=== PATIENT | female | born 1995 | race Caucasian/White ===

== ENCOUNTER → 2017-10-26 07:42 | Outpatient (CLI) | payer OTHER, SELFPAY ==
--- NOTE | 2017-10-26 07:45 | US_ITS ---
STUDY: ABDOMINAL ULTRASOUND REASON FOR EXAM: Female, 22 years old. One-week history of left abdominal pain. TECHNIQUE: Transabdominal ultrasound was performed with real-time and static roman scale imaging. TECHNICAL QUALITY: Adequate. COMPARISON: None. FINDINGS: Liver: The liver measures 13.5 cm. There is normal echogenicity of the liver. The bile ducts are within normal limits. There is hepatic color flow. The direction of portal flow is hepatopetal. There is no demonstrated mass lesion. Portal vein measurement: Gallbladder: Normal distended gallbladder. The gallbladder wall measures 2.5 mm. There is a negative sonographic Burns's sign. There is no pericholecystic fluid. There are no gallstones. Common Bile Duct (C.B.D.): The common bile duct measures 3.2 mm. Pancreas: Normal size of the head, body and tail of the pancreas. There is normal echogenicity of the pancreas. There is no demonstrated pancreatic mass or cyst. Spleen: Normal size of the spleen. The spleen measures 8.9 cm x 4.6 cm x 5.6 cm. Right Kidney: Normal size of the right kidney. The right kidney measures 9.7 cm x 5.3 cm x 3.3 cm. Normal renal cortex. The right cortex measures 1.0 cm. There is no demonstrated renal mass or cyst. There is mild hydronephrosis of the right kidney. Left Kidney: Normal size of the left kidney. The left kidney measures 9.5 cm x 4.5 cm x 4.4 cm. Normal renal cortex. The left cortex measures 1.6 cm. There is no demonstrated renal mass or cyst. There is no left hydronephrosis. Aorta: Unremarkable. I.V.C.: The IVC is patent. There is no ascites. US/Abdomen Complete IMPRESSION: Mild degree of right hydronephrosis Electronically Signed: Adonis Walker MD at 14:06 EDT Tel [phone], Service support ,
== END ==
PROVIDERS: Family Provider Pediatrics; PCP Pediatrics; Visit Provider Nurse Practitioner Women's Health
DX: R10.9 Unspecified abdominal pain (principal)
CPT/HCPCS: 76700

== ENCOUNTER → 2019-06-12 17:13 | Outpatient (CLI) | payer OTHER, SELFPAY ==
[2019-06-12 14:25] VITALS: BMI 21.1
[2019-06-16 16:08] LABS: HPV Reflexed? NOT INDICATED
== END ==
PROVIDERS: Family Provider Student in an Organized Health Care Education/Training Program; PCP Student in an Organized Health Care Education/Training Program; Referring Provider Obstetrics & Gynecology; Visit Provider Obstetrics & Gynecology
DX: Z12.4 Encounter for screening for malignant neoplasm of cervix (principal)
CPT/HCPCS: 88175; G0145

== ENCOUNTER → 2020-11-18 | Outpatient (CLI) | payer OTHER, SELFPAY ==
[2020-11-18 13:13] VITALS: BMI 23.0
== END | disposition home or self-care (01) ==
LOC: LABSPEC 16:51
PROVIDERS: PCP Student in an Organized Health Care Education/Training Program; Visit Provider Obstetrics & Gynecology
DX: R35.0 Frequency of micturition (principal)
CPT/HCPCS: 87086; 87088

== ENCOUNTER → 2022-02-27 | Outpatient (CLI) | payer BC, SELFPAY ==
[2022-03-04 12:26] LABS: HPV Reflexed? NOT INDICATED
== END | disposition home or self-care (01) ==
LOC: LABSPEC 17:03
PROVIDERS: PCP Student in an Organized Health Care Education/Training Program; Referring Provider Obstetrics & Gynecology; Visit Provider Obstetrics & Gynecology
DX: Z12.4 Encounter for screening for malignant neoplasm of cervix (principal)
CPT/HCPCS: 88175; G0145

== ENCOUNTER → 2024-04-17 | Outpatient (CLI) | payer BC, SELFPAY ==
[2024-04-20 13:53] LABS: HPV Reflexed? NOT INDICATED
== END | disposition home or self-care (01) ==
LOC: LABSPEC 17:18
PROVIDERS: PCP Student in an Organized Health Care Education/Training Program; Visit Provider Obstetrics & Gynecology
DX: Z12.4 Encounter for screening for malignant neoplasm of cervix (principal)
CPT/HCPCS: 88175; G0145

== ENCOUNTER 2024-08-25 13:09 | Outpatient (REF) | payer BC, SELFPAY ==
[2024-08-25 13:12] VITALS: BP 133/85; PULSE 107; RESP 18; TEMP 36.8; O2SAT 99; BMI 22.3
--- NOTE | 2024-08-25 14:51 | EX.ED.VIS.EY ---
HPI History of Present Illness Chief Complaint: Occup Expose Narrative Narrative: Chief complaint and HPI: 28-year-old female with past medical history of anxiety presents for evaluation of occupational exposure. Patient is an employee at [employer]. 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 She states on Wednesday while wearing gloves she was accidentally poked in the left thumb with an instrument. She states that she made a report over the website. She states that her supervisor [employer] manufacturing found out about it today and told her to present down to the ED for laboratory workup. Patient does not know the exposure source. Patient is up-to-date on hepatitis vaccines. Denies any fever, chills, chest pain, shortness of breath abdominal pain, nausea, vomiting. Review of systems: See HPI Medications: As listed on the chart Allergies: As listed on the chart PFSH: Per chart Vital signs: As listed on the chart. Reviewed. Physical exam: Gen: A&O x3, NAD Head: Normocephalic, atraumatic Eyes: No sclera icterus, conjunctiva clear ENT: Moist mucous membranes Neck: Trachea midline, No JVD CV: RRR, no murmurs, no peripheral edema Resp: Lungs CTA BL, no w/r/c Musc: Full ROM, no deformity, small healing puncture wound on the left thumb Skin: Warm, dry Neuro: Alert, oriented, grossly intact, sensation intact Psych: Cooperative, appropriate mood and affect [facility] Medical History (Updated 04/17/24 @ 13:35 by Gayle Aburto NP, [employer]) Anxiety Plugged tear duct Home Medications ?Medication ?Instructions ?Recorded ?Last Taken ?Type bupropion HCl 300 mg 24 hr tablet, 300 mg PO QAM 10/25/17 Unknown History extended release (Wellbutrin XL) sertraline 100 mg tablet (Zoloft) 100 mg PO QDAY 10/25/17 Unknown History desogestrel 0.15 mg-ethinyl 1 tab PO QDAY #84 tabs 04/17/24 Unknown Rx estradiol 0.03 mg tablet (Apri) dextroamphetamine-amphetamine 5 mg 5 mg PO QDAY 04/17/24 Unknown History tablet (Adderall) dextroamphetamine-amphetamine ER 25 mg PO QAM 04/17/24 Unknown History 25 mg 24hr capsule,extend release (Adderall XR) trazodone 50 mg tablet 50 mg PO QHS PRN 04/17/24 Unknown History desogestrel 0.15 mg-ethinyl 1 tab PO QDAY #28 tabs 06/26/24 Unknown Rx estradiol 0.03 mg tablet (Apri) Allergy/AdvReac Type Severity Reaction Status Date / Time No Known Allergies Allergy Verified 08/25/24 13:15 Family History Aunt Breast cancer Grandmother Breast cancer Surgical History History of wisdom tooth extraction, class II edentulism History of tonsillectomy Social History current occupational status: employed 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 at [facility] EXAM Physical Exam Const Vital Signs: 08/25/24 13:12 Temperature 98.2 F Temperature Source Oral Pulse Rate 107 H Respiratory Rate 18 Blood Pressure 133/85 H Blood Pressure Mean 101 Pulse Ox 99 MDM MDM MDM Narrative Medical decision making narrative: 28-year-old female with past medical history of anxiety presents for evaluation of occupational exposure. Patient is an employee at [employer]. She got an instrument stick to the left thumb on Wednesday. It was a dirty instrument. Patient is up-to-date on vaccines. Asymptomatic. Patient was given the risks and benefits of treatment for hepatitis as well as HIV given that the source of the exposure is unknown. Patient declined treatment at this time. Postexposure labs were drawn. Patient was educated to follow-up outpatient with [employer] employee health. She confirmed understanding. Patient stable to discharge home. Impression: 1. Occupational exposure body fluid fluids 2. Instrument stick to the left thumb Discharge Plan Triage Chief Complaint: Occup Expose ED Provider: Sean Francois Dx/Rx/DC Orders Clinical Impression: Occupational exposure in workplace Instructions: ED Body Fluid Exposure Not ... Prescriptions: No Action bupropion HCl [Wellbutrin XL] 300 mg tablet extended release 24 hr 300 mg PO QAM sertraline [Zoloft] 100 mg tablet 100 mg PO QDAY dextroamphetamine-amphetamine [Adderall] 5 mg tablet 5 mg PO QDAY dextroamphetamine-amphetamine [Adderall XR] 25 mg capsule,extended release 24hr 25 mg PO QAM desogestrel-ethinyl estradiol [Apri] 0.15-0.03 mg tablet 1 tab PO QDAY Qty: 84 4RF trazodone 50 mg tablet 50 mg PO QHS PRN desogestrel-ethinyl estradiol [Apri] 0.15-0.03 mg tablet 1 tab PO QDAY Qty: 28 0RF Primary Care Provider: Parvez Galvez Referrals: Parvez Galvez DO [Primary Care Provider] - Activity Restrictions/Additional Instructions: Follow-up with employee health at [employer], Print Language: Macedonian Disposition Disposition: Home, Self Care
[2024-08-25 14:57] VITALS: BP 133/85; PULSE 107; RESP 18; TEMP 36.8; O2SAT 99
[2024-08-25 15:10] LABS: HIV - WCH Non-Reactive (Nonreactive); Hepatitis B Surface Antibody Reactive; Hepatitis B Surface Antigen Non-Reactive (Nonreactive); Hepatitis C Antibody Non-Reactive (Nonreactive)
== END 2024-08-25 14:58 | disposition home or self-care (01) ==
LOC: ED 13:09
PROVIDERS: PCP Student in an Organized Health Care Education/Training Program; Visit Provider Surgery
DX: S61.032A Puncture wound without foreign body of left thumb without damage to nail, initial encounter (principal); W26.8XXA Contact with other sharp object(s), not elsewhere classified, initial encounter; Y99.0 Civilian activity done for income or pay; Y92.238 Other place in hospital as the place of occurrence of the external cause; Z77.21 Contact with and (suspected) exposure to potentially hazardous body fluids
CPT/HCPCS: 86703; 86706; 86803; 87340